=== PATIENT | female | born 2000 | race Asian ===

== ENCOUNTER 2019-10-29 01:18 | Emergency (ER) | payer BC ==
[~2019-10-29] VITALS: Ht 157.5 cm; Wt 55.0 kg
[2019-10-29 01:25] VITALS: BP 115/61
== END 2019-10-29 03:38 | disposition left against medical advice (07) ==
LOC: ER 01:18
DX: T78.40XA Allergy, unspecified, initial encounter (principal); X58.XXXA Exposure to other specified factors, initial encounter; Z53.21 Procedure and treatment not carried out due to patient leaving prior to being seen by health care provider